=== PATIENT | male | born 1970 | race Caucasian/White ===

== ENCOUNTER 2021-11-06 15:41 | Emergency (ER) | payer SELFPAY ==
[~2021-11-06] VITALS: Ht 185.4 cm; Wt 81.0 kg
[2021-11-06 16:37] VITALS: BP 135/91
[2021-11-06 17:52] LABS: BASOPHILS % (AUTO) 0.4 % (0-1); EOSINOPHILS # (AUTO) 0.2 X10'3 (0-0.9); EOSINOPHILS % (AUTO) 1.9 % (0-6); HEMATOCRIT 48.6 % (42.0-52.0); HEMOGLOBIN 16.9 g/dl (14.0-17.9); LYMPHOCYTES # (AUTO) 2.2 X10'3 (1.1-4.8); LYMPHOCYTES % (AUTO) 23.1 % (21-51); MEAN CORPUSCULAR HEMOGLOBIN 29.6 PG (27.0-31.0); MEAN CORPUSCULAR HGB CONC 34.8 g/dL (33.0-36.5); MEAN CORPUSCULAR VOLUME 85.1 FL (78-98); MEAN PLATELET VOLUME 6.9 FL (7.4-10.4); MONOCYTES # (AUTO) 0.9 X10'3 (0-0.9); MONOCYTES % (AUTO) 9.4 % (2-12); NEUTROPHILS # (AUTO) 6.1 X10'3 (1.8-7.7); NEUTROPHILS % (AUTO) 65.2 % (42-75); PLATELET COUNT 316 X10'3 (140-440); RED BLOOD COUNT 5.71 X10'6 (4.70-6.10); RED CELL DISTRIBUTION WIDTH 12.6 % (11.5-14.5); WHITE BLOOD COUNT 9.3 X10'3 (4.5-11.0)
[2021-11-06 18:02] LABS: C-REACTIVE PROTEIN 1.55 MG/DL (0.0-0.5)
[2021-11-06] MEDS ORDERED: PRED50TA PO (18:09)
[2021-11-06] MEDS ORDERED: ALLO100T PO (18:09)
[2021-11-06] MEDS ORDERED: INDO50CA96 PO (18:10)
== END 2021-11-06 18:01 | disposition home or self-care (01) ==
LOC: ER 15:42
DX: M79.672 Pain in left foot (principal); M79.675 Pain in left toe(s)
CPT/HCPCS: 36415; 84550; 85025; 85651; 86140; 99284